=== PATIENT | female | born 1965 | race Caucasian/White ===

== ENCOUNTER 2016-06-08 12:21 | Emergency (ER) | payer OTHER ==
[~2016-06-08] VITALS: Ht 167.6 cm; Wt 90.7 kg
[~2016-06-08 12:21] MED LIST: PRILOSEC20 M1 PO; XANAX0.5 M1 PO
[2016-06-08 12:48] VITALS: BP 130/81
--- NOTE | 2016-06-08 13:15 | NUR ---
Patient being evaluated by physician at bedside.
--- NOTE | 2016-06-08 13:22 | NUR ---
PATIENT PRESENTS TO ED WITH C/O DIARRHEA X 20 EPISODES TODAY BODYACHES/ [place] IS PINK/WARM/DRY; AAOX4 WITH EVEN AND STEADY GAIT; LUNGS CLEAR BL; HR EVEN AND REGULAR; PT DENIES ANY CP, SOB, OR COUGH AT THIS TIME; PATIENT STATES PAIN OF 0/10 AT THIS TIME; VSS; PATIENT POSITIONED FOR COMFORT; HOB ELEVATED; BEDRAILS UP X2; BED DOWN. ER MD EVALUATED PT.
[2016-06-08 13:42] VITALS: BP 130/81
--- NOTE | 2016-06-08 13:42 | NUR ---
Patient discharged with v/s stable. Written and verbal after care instructions given and explained. Patient alert, oriented and verbalized understanding of instructions. Ambulatory with steady gait. All questions addressed prior to discharge. ID band removed. Patient advised to follow up with PMD. Rx of ZOFRAN, CIPRO, AND LOMOTIL given. Patient educated on indication of medication including possible reaction and side effects. Opportunity to ask questions provided and answered.
== END 2016-06-08 13:42 | disposition home or self-care (01) ==
LOC: MED 12:40
DX: R10.84 Generalized abdominal pain (principal); R19.7 Diarrhea, unspecified; R50.9 Fever, unspecified; K21.9 Gastro-esophageal reflux disease without esophagitis

== ENCOUNTER 2017-01-02 17:51 | Emergency (ER) | payer OTHER ==
--- NOTE | 2017-01-02 18:33 | NUR ---
PATIENT LEFT WITHOUT BEING SEEN BY DR. CONNER. NO FURTHER CARE PROVIDED FOR PATIENT.
== END 2017-01-02 18:33 | disposition left against medical advice (07) ==
LOC: MED 17:51
DX: Z53.21 Procedure and treatment not carried out due to patient leaving prior to being seen by health care provider (principal)

== ENCOUNTER 2017-02-07 15:39 | Outpatient (CLI) | payer OTHER | END 2017-02-07 19:27 | disposition home or self-care (01) | LOC: MRD 15:39 | PROVIDERS: ATTEND Family Medicine | DX: M54.16 Radiculopathy, lumbar region (principal) | CPT/HCPCS: 72110 ==

== ENCOUNTER 2017-02-08 11:16 | Outpatient (CLI) | payer OTHER ==
[2017-02-08 11:44] LABS: BASOPHILS # (AUTO) 0.3 K/uL (0.00-0.22); BASOPHILS % (AUTO) 4.7 % (0.0-2.0); EOSINOPHILS # (AUTO) 0.2 K/uL (0-0.4); EOSINOPHILS % (AUTO) 3.2 % (0.0-4.0); HEMATOCRIT 46.4 % (36-48); HEMOGLOBIN 15.2 g/dL (12.0-16.0); LYMPHOCYTES % (AUTO) 36.1 % (20.5-51.1); MEAN CORPUSCULAR HEMOGLOBIN 27 pg (27-31); MEAN CORPUSCULAR HGB CONC 33 g/dL (33-37); MEAN CORPUSCULAR VOLUME 83 fL (80-94); MONOCYTES # (AUTO) 0.5 K/uL (0.8-1.0); MONOCYTES % (AUTO) 8.3 % (1.7-9.3); NEUTROPHILS # (AUTO) 2.6 K/uL (1.8-7.7); NEUTROPHILS % (AUTO) 47.7 % (42.2-75.2); PLATELET COUNT (AUTO) 197 K/uL (140-450); RED BLOOD CELL COUNT(AUTO) 5.62 MIL/uL (4.20-5.40); RED CELL DISTRIBUTION WIDTH 12.6 % (11.6-13.7); WHITE BLOOD COUNT (AUTO) 5.6 K/uL (4.8-10.8)
[2017-02-08 12:12] LABS: BILIRUBIN,URINE NEGATIVE (NEGATIVE); BLOOD, URINE 1+ (NEGATIVE); LEUKOCYTE ESTERASE ,URINE NEGATIVE (NEGATIVE); NITRITE, URINE NEGATIVE (NEGATIVE); PH,URINE 5.5 (5.0-9.0); UGLUCOSE NEGATIVE (NEGATIVE)
[2017-02-08 12:13] LABS: ANION GAP 10.7 (8-16); CARBON DIOXIDE 29.8 mmol/L (21-32); CREATININE 0.9 mg/dL (0.6-1.3); POTASSIUM 4.5 mmol/L (3.5-5.1)
[2017-02-08 12:25] LABS: RBC,URINE 0-5 (RARE) /HPF (0-5); WBC,URINE 0-5 (RARE) /HPF (0-5)
[2017-02-08 12:26] LABS: COLOR,URINE YELLOW (YELLOW)
[2017-02-08 12:27] LABS: APPEARANCE,URINE SLIGHTLY HAZY (CLEAR)
[2017-02-08 12:29] LABS: THYROID STIMULATING HORMONE 2.15 uIU/mL (0.34-3.74); TOTAL BILIRUBIN 0.5 mg/dL (0.0-1.0)
== END 2017-02-08 20:27 | disposition home or self-care (01) ==
LOC: MLB 11:16
PROVIDERS: ATTEND Family Medicine
DX: Z12.11 Encounter for screening for malignant neoplasm of colon (principal); E55.9 Vitamin D deficiency, unspecified; E78.4 Other hyperlipidemia; N39.0 Urinary tract infection, site not specified; D50.9 Iron deficiency anemia, unspecified; R42 Dizziness and giddiness; E03.9 Hypothyroidism, unspecified
CPT/HCPCS: 36415; 80053; 81001; 82272; 82306; 84439; 84443; 85025

== ENCOUNTER 2017-06-26 07:23 | Outpatient (CLI) | payer OTHER | END 2017-06-26 19:23 | disposition home or self-care (01) | LOC: MRD 07:23 | PROVIDERS: ATTEND Family Medicine | DX: N20.0 Calculus of kidney (principal); M54.2 Cervicalgia | CPT/HCPCS: 72052; 76700 ==

== ENCOUNTER 2018-06-12 09:09 | Inpatient (IN) | payer OTHER ==
[~2018-06-12] VITALS: Ht 167.6 cm; Wt 94.8 kg
[~2018-06-12 09:09] MED LIST changes: +ASPI81CT95 PO; -PRILOSEC20 M1 PO; +SIMV20TA6 PO; -XANAX0.5 M1 PO
[2018-06-12 09:15] VITALS: BP 121/83
--- NOTE | 2018-06-12 09:35 | NUR ---
PATIENT PRESENTS TO ED WITH THE CHIEF C/O LEFT LEG PAIN SINCE LAST NIGHT. NO INJURY, NO SWOLLEN NOTED ON LEFT LEG. DENIES ANY RECENT FALL. ABLE TO WALK WITH PAIN. TAKING PAIN MEDICINE W/O RELIEF OF PAIN. DENIES N/V/D; SKIN IS PINK/WARM/DRY; AAOX4 WITH EVEN AND STEADY GAIT; LUNGS CLEAR BL; HR EVEN AND REGULAR; PT DENIES ANY FEVER, CP, SOB, OR COUGH AT THIS TIME; PATIENT STATES PAIN OF 7/10 AT THIS TIME; VSS; PATIENT POSITIONED FOR COMFORT; HOB ELEVATED; BEDRAILS UP X2; BED DOWN. ER MD MADE AWARE OF PT STATUS.
--- NOTE | 2018-06-12 11:00 | NUR ---
NO C/O PAIN. NO SOB OR ACUTE RESPRRATORY DISTRESS NOTED. CONTINUE TO MONITOR.
[2018-06-12 12:13] LABS: BASOPHILS % (AUTO) 0.1 % (0.0-2.0); EOSINOPHILS # (AUTO) 0.1 K/uL (0-0.4); EOSINOPHILS % (AUTO) 2.1 % (0.0-4.0); HEMATOCRIT 44.3 % (36-48); HEMOGLOBIN 14.6 g/dL (12.0-16.0); LYMPHOCYTES # (AUTO) 1.8 K/uL (2.5-16.5); LYMPHOCYTES % (AUTO) 31.2 % (20.5-51.1); MEAN CORPUSCULAR HEMOGLOBIN 27 pg (27-31); MEAN CORPUSCULAR HGB CONC 33 g/dL (33-37); MEAN CORPUSCULAR VOLUME 82.4 fL (80-94); MONOCYTES # (AUTO) 0.5 K/uL (0.8-1.0); NEUTROPHILS # (AUTO) 3.3 K/uL (1.8-7.7); NEUTROPHILS % (AUTO) 58.6 % (42.2-75.2); PLATELET COUNT (AUTO) 295 K/uL (140-450); RED BLOOD CELL COUNT(AUTO) 5.38 MIL/uL (4.20-5.40); RED CELL DISTRIBUTION WIDTH 13.6 % (11.6-13.7); WHITE BLOOD COUNT (AUTO) 5.6 K/uL (4.8-10.8)
[2018-06-12] MEDS ORDERED: LORazepam 2 MG/ML VIAL IVP ONE (12:15)
[2018-06-12] MEDS ORDERED: DOCUSATE SODIUM 100 MG GELCAP PO PRN (12:20)
[2018-06-12] MEDS ORDERED: ZOLPIDEM 5 MG TAB PO PRN (12:20)
[2018-06-12] MEDS ORDERED: LORazepam 2 MG/ML VIAL IM/IVP PRN (12:20)
[2018-06-12] MEDS ORDERED: ONDANSETRON 4 MG/2 ML VIAL IM/IVP PRN (12:20)
[2018-06-12] MEDS ORDERED: ACETAMINOPHEN 325 MG TAB PO PRN (12:20)
[2018-06-12] MEDS ORDERED: MORPHINE SULFATE 2 MG/ML SYR IVP PRN (12:20)
[2018-06-12 12:49] LABS: PROTHROMBIN TIME 9.9 secs (10.8-13.4)
[2018-06-12 12:52] LABS: ANION GAP 13.2 (8-16); CARBON DIOXIDE 27.9 mmol/L (21-32); CREATININE 0.9 mg/dL (0.6-1.3); POTASSIUM 4.1 mmol/L (3.5-5.1)
[2018-06-12 12:58] LABS: ALBUMIN 3.8 g/dL (3.4-5.0); TOTAL BILIRUBIN 0.4 mg/dL (0.0-1.0)
[2018-06-12] MEDS: HYDROcodone/APAP 5/325 MG 1 TAB TAB PO PRN ×2 (13:04→20:37)
[2018-06-12] MEDS: NACL 0.9% 1,000 ML IV SCH (13:05)
[2018-06-12 13:42] LABS: MAGNESIUM 2.1 mg/dL (1.8-2.4); PHOSPHORUS 3.7 mg/dL (2.5-4.9); THYROID STIMULATING HORMONE 1.21 uIU/mL (0.34-3.74)
[2018-06-12] MEDS ORDERED: ALBUTEROL SULFATE/IPRATROPIU 3 ML SOL IH PRN (13:55)
[2018-06-12 14:10] VITALS: BP 140/85
--- NOTE | 2018-06-12 14:10 | NUR ---
RECEIVED BEDSIDE REPORT FROM ER NURSE MERON. PATIENT AAOX4. ON ROOM AIR, NO DISTRESS NOTED. SKIN INTACT. IV ON R FA 22 G INFUSING NS AT 60. IV ASYMPTOMATIC, PATENT AND INTACT. PATIENT ON TELE MONITOR AND STANDARD PRECAUTIONS. BED IN LOW POSITION, CALL LIGHT WITHIN REACH. WILL CONTINUE TO MONITOR.
--- NOTE | 2018-06-12 14:10 | NUR ---
Patient admitted to care of Dr. Thomas. Admit to telemetry. Transferred to room 118 via [facility] on stable condition. Belongings list completed. Report given to SASKIA Moran.
[2018-06-12 14:30] LABS: APPEARANCE,URINE CLOUDY (CLEAR); BILIRUBIN,URINE NEGATIVE (NEGATIVE); BLOOD, URINE TRACE-I (NEGATIVE); COLOR,URINE YELLOW (YELLOW); LEUKOCYTE ESTERASE ,URINE NEGATIVE (NEGATIVE); NITRITE, URINE POSITIVE (NEGATIVE); UGLUCOSE NEGATIVE (NEGATIVE)
--- NOTE | 2018-06-12 15:40 | NUR ---
NEW IV ON L FA [address] WITH CONTRAST TO RULE OUT PE. IV ASYMPTOMATIC, INTACT, AND PATENT.
--- NOTE | 2018-06-12 18:00 | NUR ---
PATIENT EATING DINNER. NO DISTRESS NOTED, ON ROOM AIR. WILL CONTINUE TO MONITOR.
--- NOTE | 2018-06-12 19:11 | NUR ---
GAVE BEDSIDE REPORT TO GOVERNMENT PROFESSOR NURSE ANDI. PATIENT ENDORSED IN STABLE CONDITION.
--- NOTE | 2018-06-12 19:12 | NUR ---
RECEIVED BEDSIDE REPORT FROM DAY SHIFT RN. PT IS A&OX4. ON ROOM AIR. NO S/S OF DISTRESS. SKIN INTACT. LEFT LEG SWOLLEN. PEDAL PULSE PALPABLE. WARM AND DRY TO THE TOUCH. IV ON R FA 22G AND L FA 20G NS AT 60ML/H. PLAN OF CARE WAS DISCUSSED WITH PT. CALL LIGHT WITHIN REACH. WILL CONTINUE TO MONITOR.
[2018-06-12 19:45] VITALS: BP 101/56
[2018-06-12] MEDS: RIVAROXABAN 15 MG TAB PO SCH (20:34)
--- NOTE | 2018-06-12 20:34 | NUR ---
VITAL SIGNS ARE WITHIN NORMAL LIMITS. PT STATES HAVING DISCOMFORT ON LEG PAIN 6/10 WILL ADMINISTER NORCO. DUE MEDICATIONS GIVEN. CALL LIGHT WITHIN REACH
[2018-06-12 23:32] VITALS: BP 105/61
--- NOTE | 2018-06-13 | NUR ---
VS ARE WITHIN NORMAL LIMITS. ALL NEEDS MET AT THIS TIME. CALL LIGHT WITHIN REACH. WILL CONTINUE TO MONITOR.
--- NOTE | 2018-06-13 02:28 | NUR ---
PT IS SLEEPING COMFORTABLY IN BED. NO S/S OF DISTRESS. CALL LIGHT WITHIN REACH.
--- NOTE | 2018-06-13 04:00 | NUR ---
VS ARE WITHIN NORMAL LIMITS. ALL NEEDS MET AT THIS TIME. CALL LIGHT WITHIN REACH.
[2018-06-13 04:09] VITALS: BP 122/75
[2018-06-13] MEDS: NACL 0.9% 1,000 ML IV SCH (04:25)
--- NOTE | 2018-06-13 05:40 | NUR ---
IV INFILTRATED. ARM ELEVATED ON PILLOW. IV ON LAC 20G REMAINS INTACT AND PATENT. IVF NOW INFUSING ON L AC WILL CONTINUE TO MONITOR.
--- NOTE | 2018-06-13 07:12 | NUR ---
GAVE BEDSIDE REPORT TO MARIBEL KRUGER. ENDORSED PT IN STABLE CONDITION.
--- NOTE | 2018-06-13 07:13 | NUR ---
RECEIVED BEDSIDE REPORT FROM SASKIA ESCAMILLA. PATIENT AAOX4. ON ROOM AIR, NO DISTRESS NOTED. SKIN INTACT. ON TELE MONITOR AND STANDARD PRECAUTIONS. PATIENT AMBULATORY. IV ON L AC 20 G INFUSING NS AT 60. IV ASYMPTOMATIC, INTACT, AND PATENT. BED IN LOW POSITION, CALL LIGHT WITHIN REACH. WILL CONTINUE TO MONITOR.
[2018-06-13 07:25] LABS: BASOPHILS % (AUTO) 0.1 % (0.0-2.0); EOSINOPHILS # (AUTO) 0.1 K/uL (0-0.4); EOSINOPHILS % (AUTO) 2.6 % (0.0-4.0); HEMATOCRIT 43.9 % (36-48); HEMOGLOBIN 14.3 g/dL (12.0-16.0); LYMPHOCYTES # (AUTO) 1.6 K/uL (2.5-16.5); LYMPHOCYTES % (AUTO) 39.4 % (20.5-51.1); MEAN CORPUSCULAR HEMOGLOBIN 27 pg (27-31); MEAN CORPUSCULAR HGB CONC 33 g/dL (33-37); MEAN CORPUSCULAR VOLUME 82.4 fL (80-94); MONOCYTES # (AUTO) 0.4 K/uL (0.8-1.0); MONOCYTES % (AUTO) 9.7 % (1.7-9.3); NEUTROPHILS % (AUTO) 48.2 % (42.2-75.2); PLATELET COUNT (AUTO) 255 K/uL (140-450); RED BLOOD CELL COUNT(AUTO) 5.32 MIL/uL (4.20-5.40); RED CELL DISTRIBUTION WIDTH 13.7 % (11.6-13.7); WHITE BLOOD COUNT (AUTO) 4.1 K/uL (4.8-10.8)
[2018-06-13 07:35] LABS: CARBON DIOXIDE 28.1 mmol/L (21-32); CREATININE 0.8 mg/dL (0.6-1.3); POTASSIUM 4.1 mmol/L (3.5-5.1)
[2018-06-13 07:44] LABS: CHOL/HDL RATIO 4.2 (1-4.5); MAGNESIUM 2.1 mg/dL (1.8-2.4); PHOSPHORUS 3.7 mg/dL (2.5-4.9)
--- NOTE | 2018-06-13 07:52 | NUR ---
PATIENT HAS BEEN SCREENED AND CATEGORIZED MODERATE NUTRITION RISK. PATIENT WILL BE SEEN WITHIN 3-5 DAYS OF ADMISSION. 06/15/18RAD[address]
[2018-06-13 08:00] VITALS: BP 115/66
[2018-06-13] MEDS ORDERED: ASPIRIN 81 MG TAB.CHEW PO SCH (09:00)
[2018-06-13] MEDS: RIVAROXABAN 15 MG TAB PO SCH (09:54)
--- NOTE | 2018-06-13 09:59 | NUR ---
ADMINISTERED SCHEDULED MEDS. PATIENT TOLERATED WELL. L FA 20 G IV INFILTRATED. DISCONTINUED IV AND ELEVATED EXTREMITY. PATIENT REFUSED ANOTHER IV TO BE INSERTED. PATIENT STATED SHE WILL BE DISCHARGED TODAY ANYWAYS. EDUCATED PATIENT ON IMPORTANCE OF IV WHILE IN HOSPITAL. PATIENT STILL REFUSED. WILL CONTINUE TO MONITOR PATIENT.
[2018-06-13] MEDS ORDERED: RIVA15TA1 PO (10:54)
[2018-06-13] MEDS ORDERED: ASPI81CT95 PO (10:54)
[2018-06-13 12:00] VITALS: BP 104/58
--- NOTE | 2018-06-13 12:17 | NUR ---
PATIENT TALKING ON PHONE. ON ROOM AIR NO DISTRESS NOTED, WILL CONTINUE TO MONITOR.
--- NOTE | 2018-06-13 12:53 | NUR ---
PROVIDED PATIENT WITH DISCHARGE INSTRUCTIONS INCLUDING APPOINTMENT WITH DR. HEADLEY ON JUN 18 AT 2:30 PM AND COPIES OF VENOUS DOPPLER STUDY AND CHEST/THORAX CT. INSTRUCTED PATIENT TO RETURN TO NEAREST ER WHEN EXPERIENCING FEVER, SOB, PAIN, ETC. EDUCATED PATIENT ON NEW MEDS PRESCRIBED BY DOCTOR AND ELECTORNICALLY SENT TO PHARMACY IN [facility]. PATIENT VERBALIZED UNDERSTANDING. ANSWERED ALL QUESTIONS AND CONCERNS. WRIST BAND REMOVED. TELE MONITOR REMOVED.
== END 2018-06-13 13:30 | disposition home or self-care (01) | DRG 301 ==
LOC: MED 09:09 → MTU 12:20
PROVIDERS: ADMIT General Practice; ATTEND General Practice
DX: I82.442 Acute embolism and thrombosis of left tibial vein (principal); E78.5 Hyperlipidemia, unspecified; G43.909 Migraine, unspecified, not intractable, without status migrainosus; F41.9 Anxiety disorder, unspecified; M54.32 Sciatica, left side; J45.909 Unspecified asthma, uncomplicated; I10 Essential (primary) hypertension; E66.9 Obesity, unspecified; Z98.51 Tubal ligation status; Z79.82 Long term (current) use of aspirin; Z79.899 Other long term (current) drug therapy; Z91.19 Patient's noncompliance with other medical treatment and regimen; Z68.33 Body mass index [BMI] 33.0-33.9, adult
CPT/HCPCS: 36415; 71045; 71275; 80048; 80053; 81003; 83036; 83690; 83735; 83880; 84100; 84443; 84484; 85025; 85610; 85730; 87081; 93005; 93971; 96374; 99285; J2060; J7030; Q0092; Q9967

== ENCOUNTER 2018-06-18 15:45 | Outpatient (CLI) | payer OTHER ==
[~2018-06-18 15:45] MED LIST changes: +RIVA15TA1 PO
[2018-06-18 17:28] LABS: BILIRUBIN,URINE NEGATIVE (NEGATIVE); BLOOD, URINE TRACE-I (NEGATIVE); COLOR,URINE YELLOW (YELLOW); LEUKOCYTE ESTERASE ,URINE NEGATIVE (NEGATIVE); NITRITE, URINE POSITIVE (NEGATIVE); UGLUCOSE NEGATIVE (NEGATIVE)
[2018-06-18 17:30] LABS: APPEARANCE,URINE SLIGHTLY CLOUDY (CLEAR)
[2018-06-18 17:36] LABS: RBC,URINE 0-5 (RARE) /HPF (0-5); WBC,URINE 0-5 (RARE) /HPF (0-5)
[2018-06-18 17:50] LABS: PROTHROMBIN TIME 9.9 secs (10.8-13.4)
[2018-06-20 15:07] LABS: PROTEIN C-FUNCTIONAL 172 % (73-180); PROTEIN S-FUNCTIONAL 90 % (63-140)
== END 2018-06-18 20:03 | disposition home or self-care (01) ==
LOC: MLB 15:45
PROVIDERS: ATTEND Preventive Medicine Preventive Medicine/Occupational Environmental Medicine
DX: I82.402 Acute embolism and thrombosis of unspecified deep veins of left lower extremity (principal); I10 Essential (primary) hypertension; E78.5 Hyperlipidemia, unspecified; J45.909 Unspecified asthma, uncomplicated; Z79.01 Long term (current) use of anticoagulants; Z79.899 Other long term (current) drug therapy
CPT/HCPCS: 36415; 81001; 84132; 85220; 85301; 85305; 85306; 85610; 85730; 86147; 87086

== ENCOUNTER 2019-03-07 09:41 | Emergency (ER) | payer OTHER ==
[~2019-03-07] VITALS: Ht 167.6 cm; Wt 94.4 kg
[~2019-03-07 09:41] MED LIST changes: -SIMV20TA6 PO
[2019-03-07 09:52] VITALS: BP 113/66
--- NOTE | 2019-03-07 09:58 | NUR ---
pt arrived to ed c/o dizzy spells and chest discomfort x 3 days. no sob. pt states chest discomfrot happens when she moves or lays on her side. rates pain 3/10. 2mm perrla brisk. vss. deneis any head injury or falls. lung sounds clear throughout and heart sounds [id number] present. nka. pmh: vertigo
--- NOTE | 2019-03-07 09:58 | NUR ---
PT ambulated to bed 04.
[2019-03-07] MEDS ORDERED: MECLIZINE 25 MG TAB PO ONE ×2 (10:10→11:00)
[2019-03-07] MEDS ORDERED: ONDANSETRON 4 MG/2 ML VIAL IVP ONE (10:10)
[2019-03-07] MEDS ORDERED: NACL 0.9% 1,000 ML IV ONE (10:10)
[2019-03-07] MEDS ORDERED: KETOROLAC 30 MG/ML VIAL IVP ONE (10:10)
[2019-03-07 10:31] LABS: BASOPHILS % (AUTO) 0.3 % (0.0-2.0); EOSINOPHILS # (AUTO) 0.2 K/uL (0-0.4); EOSINOPHILS % (AUTO) 3.2 % (0.0-4.0); HEMATOCRIT 46.7 % (36-48); HEMOGLOBIN 15.6 g/dL (12.0-16.0); LYMPHOCYTES # (AUTO) 1.8 K/uL (2.5-16.5); MEAN CORPUSCULAR HEMOGLOBIN 28 pg (27-31); MEAN CORPUSCULAR HGB CONC 33 g/dL (33-37); MEAN CORPUSCULAR VOLUME 83.6 fL (80-94); MONOCYTES # (AUTO) 0.5 K/uL (0.8-1.0); MONOCYTES % (AUTO) 8.9 % (1.7-9.3); NEUTROPHILS # (AUTO) 3.1 K/uL (1.8-7.7); NEUTROPHILS % (AUTO) 55.6 % (42.2-75.2); PLATELET COUNT (AUTO) 299 K/uL (140-450); RED BLOOD CELL COUNT(AUTO) 5.59 MIL/uL (4.20-5.40); RED CELL DISTRIBUTION WIDTH 13.5 % (11.6-13.7); WHITE BLOOD COUNT (AUTO) 5.6 K/uL (4.8-10.8)
[2019-03-07 10:43] LABS: ANION GAP 10.3 (8-16); CARBON DIOXIDE 31.3 mmol/L (21-32); CREATININE 0.9 mg/dL (0.6-1.3); POTASSIUM 4.6 mmol/L (3.5-5.1)
[2019-03-07 10:49] LABS: TOTAL BILIRUBIN 0.4 mg/dL (0.0-1.0)
[2019-03-07 11:53] VITALS: BP 113/66
--- NOTE | 2019-03-07 11:53 | NUR ---
Patient discharged with v/s stable. Written and verbal after care instructions given and explained. Patient alert, oriented and verbalized understanding of instructions. Ambulatory with steady gait. All questions addressed prior to discharge. ID band removed. Patient advised to follow up with PMD. Rx of ZOFRAN, AND MECLIZINE given. Patient educated on indication of medication including possible reaction and side effects. Opportunity to ask questions provided and answered.
--- NOTE | 2019-03-10 12:46 | NUR ---
Late entry. Confirmed with RN that 0.9 NS 1000 ml IV completed at 1140
== END 2019-03-07 11:47 | disposition home or self-care (01) ==
LOC: MED 09:41
DX: R42 Dizziness and giddiness (principal); K29.70 Gastritis, unspecified, without bleeding; K21.9 Gastro-esophageal reflux disease without esophagitis; R06.02 Shortness of breath; M54.5 Low back pain; J45.909 Unspecified asthma, uncomplicated; R11.2 Nausea with vomiting, unspecified; Z79.82 Long term (current) use of aspirin; Z79.899 Other long term (current) drug therapy
CPT/HCPCS: 36415; 80053; 85025; 93005; 96361; 96374; 96375; 99284; J1885; J2405; J7030; J8597

== ENCOUNTER 2019-03-25 14:36 | Emergency (ER) | payer OTHER ==
[~2019-03-25] VITALS: Ht 167.6 cm; Wt 90.7 kg
[2019-03-25 15:00] VITALS: BP 123/74
--- NOTE | 2019-03-25 15:04 | NUR ---
PT TRIAGED AND SENT BACK TO LOBBY. VSS. WAITING FOR BED AVAILABILITY
--- NOTE | 2019-03-25 16:33 | NUR ---
PATIENT PRESENTS TO ED C/O BILATERAL CALF PAIN AND RIGHT THIGH PAIN WHICH STARTED ON SUNDAY AND PROGRESSIVELY WORSENED. STATES 5/10 PAIN ON CALVES AND 8/10 PAIN ON RIGHT THIGH. PT TOOK TYLENOL THIS MORNING WHICH PROVIDED NO RELIEF. PT DENIES ANY URINARY PROBLEMS. PT IS AMBULATORY, WITH PAIN ON WALKING. BILATERAL PEDAL PULSES STRONG. NO SWELLING OR REDNESS NOTED. VSS; PATIENT POSITIONED FOR COMFORT; HOB ELEVATED; BEDRAILS UP X2; BED DOWN. ER MD MADE AWARE OF PT STATUS. PMH: DVT, LEFT LEG- MAY 2018 MEDS: NONE NKA.
--- NOTE | 2019-03-25 16:36 | NUR ---
PA Lange evaluating patient at bedside.
[2019-03-25] MEDS ORDERED: KETOROLAC 60 MG/2 ML VIAL IM ONE (16:45)
--- NOTE | 2019-03-25 16:58 | NUR ---
ULTRASOUND AT BEDSIDE
[2019-03-25 18:12] VITALS: BP 120/72
== END 2019-03-25 18:13 | disposition home or self-care (01) ==
LOC: MED 14:36
DX: M79.605 Pain in left leg (principal); M79.604 Pain in right leg; G43.919 Migraine, unspecified, intractable, without status migrainosus; J45.909 Unspecified asthma, uncomplicated; Z79.899 Other long term (current) drug therapy; Z79.82 Long term (current) use of aspirin
CPT/HCPCS: 93970; 96372; 99284; J1885; Q0092; 81002; 96361; 96374; 99283

== ENCOUNTER 2020-03-29 15:06 | Outpatient (CLI) | payer OTHER | END 2020-03-29 22:37 | disposition home or self-care (01) | LOC: MRD 15:06 | PROVIDERS: ATTEND Preventive Medicine Preventive Medicine/Occupational Environmental Medicine | DX: R60.9 Edema, unspecified (principal); Z86.718 Personal history of other venous thrombosis and embolism | CPT/HCPCS: 93971 ==

== ENCOUNTER 2021-08-18 10:35 | Emergency (ER) | payer OTHER ==
[~2021-08-18] VITALS: Ht 167.6 cm; Wt 99.5 kg
[2021-08-18 10:47] VITALS: BP 105/84
--- NOTE | 2021-08-18 10:55 | NUR ---
PATIENT AMBULATED TO BED 6.
--- NOTE | 2021-08-18 11:03 | NUR ---
BIB SELF C/O 6/10 LOWER BACK PAIN X 2 DAYS. DENIES RECENTLY TRAUMA/INJURY OR DYSURIA. PMH: DENIES. DENIES N/V/D; SKIN IS PINK/WARM/DRY; AAOX4 WITH EVEN AND STEADY GAIT; LUNGS CLEAR BL; HR EVEN AND REGULAR; PT DENIES ANY FEVER, CP, SOB, OR COUGH AT THIS TIME. PATIENT POSITIONED FOR COMFORT; HOB ELEVATED; BEDRAILS UP X1; BED DOWN. ER MD MADE AWARE OF PT STATUS.
[2021-08-18] MEDS ORDERED: CYCLOBENZAPRINE 10 MG TAB PO ONE (11:35)
[2021-08-18] MEDS ORDERED: KETOROLAC 30 MG/ML VIAL IM ONE (11:35)
[2021-08-18] MEDS ORDERED: LIDOCAINE 5% 1 EA PATCH TP ONE ×2 (11:44→11:50)
[2021-08-18] MEDS ORDERED: DICL100G5 TP (12:09)
[2021-08-18] MEDS ORDERED: CYCL-711 PO (12:09)
[2021-08-18] MEDS ORDERED: LID5T TP (12:09)
[2021-08-18 12:26] VITALS: BP 112/68
--- NOTE | 2021-08-18 12:27 | NUR ---
Patient discharged with v/s stable. Written and verbal after care instructions given and explained. Patient alert, oriented and verbalized understanding of instructions. Ambulatory with steady gait. All questions addressed prior to discharge. ID band removed. Patient advised to follow up with PMD. Rx of FLEXERIL, LIDOREM PATCH given. Patient educated on indication of medication including possible reaction and side effects. Opportunity to ask questions provided and answered.
[2021-08-19] MEDS ORDERED: LIDOCAINE 5% 1 EA PATCH TP SCH (09:00)
== END 2021-08-18 12:27 | disposition home or self-care (01) ==
LOC: MED 10:35
DX: S39.012A Strain of muscle, fascia and tendon of lower back, initial encounter (principal); J45.909 Unspecified asthma, uncomplicated; Z79.82 Long term (current) use of aspirin; Z86.718 Personal history of other venous thrombosis and embolism; Z79.899 Other long term (current) drug therapy; X58.XXXA Exposure to other specified factors, initial encounter; Y93.89 Activity, other specified; Y92.89 Other specified places as the place of occurrence of the external cause; Y99.8 Other external cause status
CPT/HCPCS: 81002; 81025; 96372; 99283; J1885

== ENCOUNTER 2022-03-29 09:08 | Emergency (ER) | payer OTHER ==
[~2022-03-29] VITALS: Ht 167.6 cm; Wt 97.2 kg
[~2022-03-29 09:08] MED LIST changes: +CYCL-711 PO; +DICL100G5 TP; +LID5T TP
[2022-03-29 09:32] VITALS: BP 120/79
--- NOTE | 2022-03-29 09:40 | NUR ---
COVID, FLU SWABS DONE.
--- NOTE | 2022-03-29 09:41 | NUR ---
C/O COUGH, EARS PAIN, SORE THROAT, BUSTOS X YESTERTDAY AND C/O NAUSEA, DIARRHEA X TODAY. COVID TESTED NEGATIVE YESTERDAY. PMH: ASTHMA
[2022-03-29] MEDS ORDERED: OXYM20SP1 NS (09:57)
[2022-03-29] MEDS ORDERED: ONDA-188 PO (09:57)
[2022-03-29] MEDS ORDERED: PROM118S5 PO (09:57)
[2022-03-29 10:10] VITALS: BP 120/79
--- NOTE | 2022-03-29 10:10 | NUR ---
Patient discharged with v/s stable. Written and verbal after care instructions given and explained. Patient alert, oriented and verbalized understanding of instructions. Ambulatory with steady gait. All questions addressed prior to discharge. ID band removed. Patient advised to follow up with PMD. Rx of ZOFRAN ODT, AFRIN,PROMETHAZINE given. Patient educated on indication of medication including possible reaction and side effects. Opportunity to ask questions provided and answered.
== END 2022-03-29 10:10 | disposition home or self-care (01) ==
LOC: MED 09:08
DX: J06.9 Acute upper respiratory infection, unspecified (principal); Z20.822 Contact with and (suspected) exposure to COVID-19
CPT/HCPCS: 99283

== ENCOUNTER 2022-05-03 06:30 | Emergency (ER) | payer OTHER ==
[~2022-05-03] VITALS: Ht 167.6 cm; Wt 97.5 kg
[~2022-05-03 06:30] MED LIST changes: +ONDA-188 PO; +OXYM20SP1 NS; +PROM118S5 PO
[2022-05-03 06:45] VITALS: BP 130/80
--- NOTE | 2022-05-03 06:48 | NUR ---
TO LOBBY A/W BED AMBULATORY
[2022-05-03] MEDS ORDERED: KETOROLAC 15 MG/ML VIAL IM ONE (07:20)
--- NOTE | 2022-05-03 07:42 | NUR ---
56/F PRESENTS TO ED WITH C/O COUGH, BODY ACHES, N/D AND FEVERS SINCE SUNDAY. STATES FAMILY AT HOME SICK WITH SIMILAR SYMPTOMS, REPORTS TAKING OTC COLD MEDS WITH LITTLE RELIEF, DENIES CP, SOB.
[2022-05-03] MEDS ORDERED: BENZ200C4 PO (07:45)
[2022-05-03] MEDS ORDERED: TAM75 PO (07:45)
[2022-05-03] MEDS ORDERED: IBUP-2213 PO (07:45)
--- NOTE | 2022-05-03 08:25 | NUR ---
Patient discharged with v/s stable. Written and verbal after care instructions ABOUT INFLUENZA given and explained. Patient alert, oriented and verbalized understanding of instructions. Ambulatory with steady gait. All questions addressed prior to discharge. ID band removed. Patient advised to follow up with PMD. Rx of BENZONATATE, IBUPROFEN AND TAMIFLU given. Patient educated on indication of medication including possible reaction and side effects. Opportunity to ask questions provided and answered.
== END 2022-05-03 08:25 | disposition home or self-care (01) ==
LOC: EEVIPCON 06:30 → MED 06:30
DX: J06.9 Acute upper respiratory infection, unspecified (principal); Z20.822 Contact with and (suspected) exposure to COVID-19; J45.909 Unspecified asthma, uncomplicated
CPT/HCPCS: 81025; 87426; 87804; 96372; 99283; J1885